=== PATIENT | male | born 1945 | race Caucasian/White ===

== ENCOUNTER 2019-05-25 01:29 | Emergency (ER) | payer OTHER ==
[2019-05-25] MEDS ORDERED: FAMOTIDINE 20 MG TAB ONE (01:57)
[2019-05-25] MEDS ORDERED: DIPHENHYDRAMINE 25 MG TAB/CAP ONE (01:57)
[2019-05-25] MEDS ORDERED: METHYLPREDNISOLONE 125 MG INJ ONE (01:57)
--- NOTE | 2019-05-25 02:24 | ER ---
Nurse's Notes [facility] Name: Anthony Rothman Jr Age: 73 yrs Sex: Male : 1945 Arrival Date: 05/25/2019 Time: 01:31 Bed 8 Private MD: Diagnosis: Rash and other nonspecific skin eruption;Urticaria Presentation: 05/25 01:45 Presenting complaint: Patient states: itching and rash since yesterday. pt woke with ak1 itching to bilateral hands. Transition of care: patient was not received from another setting of care. Onset: The symptoms/episode began/occurred yesterday. Anaphylaxis evaluation, no signs or symptoms of anaphylaxis were noted. Onset of symptoms is unknown. Risk Assessment: Do you want to hurt yourself or someone else? Patient reports no desire to harm self or others. Initial Sepsis Screen: Does the patient meet any 2 criteria? No. Patient's initial sepsis screen is negative. Does the patient have a suspected source of infection? No. Patient's initial sepsis screen is negative. Care prior to arrival: None. 01:45 Method Of Arrival: Ambulatory ak1 01:45 Acuity: EMERY 3 ak1 Triage Assessment: 01:46 General: Appears in no apparent distress. uncomfortable, Behavior is cooperative, ak1 anxious. Pain: Denies pain. EENT: No signs and/or symptoms were reported regarding the EENT system. Neuro: Level of Consciousness is awake, alert, obeys commands, Oriented to person, place, time, situation, Appropriate for age [employer] are equal bilaterally Moves all extremities. Full function Gait is steady, Speech is normal, Facial symmetry appears normal. Cardiovascular: No deficits noted. Respiratory: Airway is patent Respiratory effort is even, unlabored, Breath sounds are clear bilaterally. GI: No signs and/or symptoms were reported involving the gastrointestinal system. : No signs and/or symptoms were reported regarding the genitourinary system. Derm: Rash noted that is itchy, red. Musculoskeletal: No signs and/or symptoms reported regarding the musculoskeletal system. Historical: - Allergies: :46 No Known Allergies; ak1 - Home Meds: :46 None [Active]; ak1 - PMHx: :46 None; ak1 - PSHx: :46 Appendectomy; Vasectomy; Hernia repair; ak1 - Immunization history:: Adult Immunizations unknown, Flu vaccine is not up to date. - Social history:: Smoking status: Patient/guardian denies using tobacco. - Ebola Screening: : No symptoms or risks identified at this time. Screenin:47 Abuse screen: Denies threats or abuse. Denies injuries from another. Nutritional ak1 screening: No deficits noted. Tuberculosis screening: No symptoms or risk factors identified. Fall Risk None identified. Assessment: 02:01 Reassessment: Patient appears in no apparent distress at this time. No changes from ak1 previously documented assessment. Reassessment: see triage assessment. General: Appears uncomfortable, Behavior is anxious. Respiratory: Airway is patent Respiratory effort is even, unlabored. 02:32 Reassessment: Patient states feeling better. Patient states symptoms have improved. ak1 Vital Signs: 01:44 BP 184 / 93; Pulse 61; Resp 18; Temp 97.0; Pulse Ox 99% on R/A; Weight 78.02 kg (R); ak1 Height 5 ft. 9 in. (175.26 cm) (R); Pain 0/10; 02:01 BP 144 / 75; Pulse 55; Resp 16; Pulse Ox 100% on R/A; ak1 02:32 BP 141 / 76; Pulse 52; Resp 16; Pulse Ox 100% on R/A; ak1 01:44 Body Mass Index 25.40 (78.02 kg, 175.26 cm) ak1 ED Course: 01:31 Patient arrived in ED. cl3 01:44 [facility] la1 01:44 Talat John MD is Attending Physician. la1 01:44 Cassandra Coleman, YANI is Primary Nurse. ak1 01:44 Arm band placed on Patient placed in an exam room, on a stretcher, on pulse oximetry, ak1 Patient notified of wait time. 01:46 Triage completed. ak1 01:48 Patient has correct armband on for positive identification. ak1 02:33 No provider procedures requiring assistance completed. Patient did not have IV access ak1 during this emergency room visit. Administered Medications: 02:00 Drug: Pepcid 20 mg Route: PO; ak1 02:37 Follow up: Response: No adverse reaction ak1 02:01 Drug: Benadryl 50 mg Route: PO; ak1 02:37 Follow up: Response: No adverse reaction ak1 02:01 Drug: SOLU-Medrol 125 mg Route: IM; Site: right gluteus; ak1 02:37 Follow up: Response: No adverse reaction ak1 Outcome: 02:23 Discharge ordered by . la1 02:37 Discharged to home ambulatory, with family. ak1 02:37 Condition: good 02:37 Discharge instructions given to patient, family, Instructed on discharge instructions, follow up and referral plans. no drinking with medication, no driving heavy equipment, medication usage, Demonstrated understanding of instructions, follow-up care, medications, Prescriptions given X 1. 02:37 Patient left the ED. ak1 Signatures: Antonino Cerna, [employer] Cassandra Coleman RN RN ak1 Yang Perez cl3
--- NOTE | 2019-05-25 02:24 | EDPHYS ---
Physician Documentation [facility] Name: Anthony Rothman Jr Age: 73 yrs Sex: Male : 1945 Arrival Date: 05/25/2019 Time: 01:31 Bed 8 Private MD: ED Physician Talat John HPI: 05/25 01:53 This 73 yrs old Male presents to ER via Ambulatory with complaints of la1 Allergic Reaction. 01:53 The patient presents with rash, that is diffuse. Onset: The symptoms/episode la1 began/occurred yesterday. Associated signs and symptoms: Pertinent negatives: abdominal pain, Altered mental status chest pain, Light headed nausea, shortness of breath, swelling. Possible causes: The patient has no known obvious cause for the symptoms. At home the patient or guardian has treated the symptoms with nothing. Severity of symptoms: At their worst the symptoms were mild. The patient has experienced similar episodes in the past. Pt reports onset of itchy rash that started in JOHN wrists and has spread throughout abd and chest. Historical: - Allergies: 01:46 No Known Allergies; ak1 - Home Meds: 01:46 None [Active]; ak1 - PMHx: 01:46 None; ak1 - PSHx: 01:46 Appendectomy; Vasectomy; Hernia repair; ak1 - Immunization history:: Adult Immunizations unknown, Flu vaccine is not up to date. - Social history:: Smoking status: Patient/guardian denies using tobacco. - Ebola Screening: : No symptoms or risks identified at this time. ROS: 01:54 Constitutional: Negative for fever, chills, and weight loss, Eyes: Negative for injury, la1 pain, redness, and discharge, ENT: Negative for injury, pain, and discharge, Neck: Negative for injury, pain, and swelling, Cardiovascular: Negative for chest pain, palpitations, and edema, Respiratory: Negative for shortness of breath, cough, wheezing, and pleuritic chest pain, Abdomen/GI: Negative for abdominal pain, nausea, vomiting, diarrhea, and constipation, Back: Negative for injury and pain, MS/Extremity: Negative for injury and deformity. 01:54 Skin: Positive for rash. 01:54 Neuro: Exam: 01:59 Constitutional: This is a well developed, well nourished patient who is awake, alert, la1 and in no acute distress. Eyes: Pupils equal round and reactive to light, extra-ocular motions intact. Periorbital areas with no swelling, redness, or edema. ENT: Mucous membranes moist. Neck: No Meningismus. Chest/axilla: Normal chest wall appearance and motion. Nontender with no deformity. No lesions are appreciated. Cardiovascular: Regular rate and rhythm with a normal S1 and S2. No gallops, murmurs, or rubs. Normal PMI, no JVD. No pulse deficits. Respiratory: Lungs have equal breath sounds bilaterally, clear to auscultationNo rales, rhonchi or wheezes noted. No increased work of breathing, no retractions or nasal flaring. Abdomen/GI: Soft, non-tender, with normal bowel sounds. No distension. No guarding or rebound. No evidence of tenderness throughout. 01:59 Skin: rash a mild rash is noted, rash can be described as papular, raised, urticarial, urticaria, and is diffusely located. Vital Signs: 01:44 BP 184 / 93; Pulse 61; Resp 18; Temp 97.0; Pulse Ox 99% on R/A; Weight 78.02 kg (R); ak1 Height 5 ft. 9 in. (175.26 cm) (R); Pain 0/10; 02:01 BP 144 / 75; Pulse 55; Resp 16; Pulse Ox 100% on R/A; ak1 02:32 BP 141 / 76; Pulse 52; Resp 16; Pulse Ox 100% on R/A; ak1 01:44 Body Mass Index 25.40 (78.02 kg, 175.26 cm) ak1 MDM: 01:44 Patient medically screened. la1 02:50 Data reviewed: vital signs, nurses notes, I have discussed the patient's la1 presentation/case with the attending Emergency Department Physician; and as a result, I will discharge patient. Data interpreted: Pulse oximetry: on room air is 100 %. Interpretation: normal. Counseling: I had a detailed discussion with the patient and/or guardian regarding: the historical points, exam findings, and any diagnostic results supporting the discharge/admit diagnosis, the need for outpatient follow up, a family practitioner. Administered Medications: 02:00 Drug: Pepcid 20 mg Route: PO; ak1 02:37 Follow up: Response: No adverse reaction ak1 02:01 Drug: Benadryl 50 mg Route: PO; ak1 02:37 Follow up: Response: No adverse reaction ak1 02:01 Drug: SOLU-Medrol 125 mg Route: IM; Site: right gluteus; ak1 02:37 Follow up: Response: No adverse reaction ak1 Disposition: 05/25/19 02:23 Discharged to Home. Impression: Rash and other nonspecific skin eruption, Urticaria. - Condition is Stable. - Discharge Instructions: Allergies, Adult, Rash. - Prescriptions for Medrol (Ascencion) 4 mg Oral Tablets, Dose Pack - take 1 tablet by ORAL route as directed - follow package instructions; 1 packet. - Medication Reconciliation Form, Thank You Letter form. - Follow up: Private Physician; When: 2 - 3 days; Reason: Recheck today's complaints, Re-evaluation by your physician. - Problem is new. - Symptoms have improved. Addendum: 05/26/2019 09:28 Co-signature as Attending Physician, Talat John MD I agree with the assessment and c suárez plan of care. Signatures: Talat John MD MD cha Attema, Lee, [employer] Cassandra Coleman, RN RN ak1 Corrections: (The following items were deleted from the chart) 05/25 02:37 02:23 05/25/2019 02:23 Discharged to Home. Impression: Rash and other nonspecific skin ak1 eruption; Urticaria. Condition is Stable. Forms are Medication Reconciliation Form, Thank You Letter, Antibiotic Education, Prescription Opioid Use. Follow up: Private Physician; When: 2 - 3 days; Reason: Recheck today's complaints, Re-evaluation by your physician. Problem is new. Symptoms have improved. la1
[2019-05-25 05:36] VITALS: O2SAT 100
[2019-05-25 05:37] VITALS: TEMP 97
[2019-05-25 05:39] VITALS: BP 141/76
== END 2019-05-25 02:37 | disposition home or self-care (01) ==
LOC: ER 01:29
DX: L50.9 Urticaria, unspecified (principal)
CPT/HCPCS: 96372; 99283; J2930